=== PATIENT | female | born 1970 | race African-American/Black ===

== ENCOUNTER 2019-08-26 09:39 | Emergency (ER) | payer OTHER ==
[~2019-08-26] VITALS: Ht 154.9 cm; Wt 53.1 kg
[2019-08-26 10:11] VITALS: BP 109/72
== END 2019-08-26 10:10 | disposition home or self-care (01) ==
LOC: ER 09:39
DX: M79.675 Pain in left toe(s) (principal); Z88.6 Allergy status to analgesic agent; Z88.5 Allergy status to narcotic agent; Z88.0 Allergy status to penicillin; Z88.8 Allergy status to other drugs, medicaments and biological substances; W22.8XXA Striking against or struck by other objects, initial encounter; Y93.89 Activity, other specified; Y92.69 Other specified industrial and construction area as the place of occurrence of the external cause; Y99.9 Unspecified external cause status